=== PATIENT | male | born 1995 | race Caucasian/White ===

== ENCOUNTER 2019-05-07 18:17 | Emergency (ER) | payer OTHER ==
[2019-05-07 19:40] VITALS: RESP 19
--- NOTE | 2019-05-07 20:01 | ED ---
General Adult HPI - General Chief complaint: Syncope Stated complaint: Passed out eye injury Time Seen by Provider: 05/07/19 18:40 Source: patient, RN notes reviewed Mode of arrival: wheelchair Limitations: no limitations - History of Present Illness Initial comments: This a 24-year-old male who presents emergency department after having had a syncopal episode. Patient states he was sleeping he got up and went to the bathroom and when he was urinating started to feel lightheaded the next thing He knows he ended up on the ground. Patient states he has a very superficial abrasion just under the left eye. Patient denies any headache. patient denies any numbness weakness. Patient denies feeling any chest pain palpitations difficulty breathing shortness of breath. Patient states since he fell he feels back to his baseline. - Related Data Home Medications Medication Instructions Recorded Confirmed Cephalexin [Keflex] 500 mg PO TID 05/07/19 05/07/19 Lisinopril-Hctz 20-12.5 mg 1 tab PO DAILY 05/07/19 05/07/19 [Zestoretic 20-12.5] Allergies Allergy/AdvReac Type Severity Reaction Status Date / Time No Known Allergies Allergy Verified 05/07/19 19:50 Review of Systems ROS Statement: Those systems with pertinent positive or pertinent negative responses have been documented in the HPI. ROS Other: All systems not noted in ROS Statement are negative. Past Medical History Past Medical History: Hypertension History of Any Multi-Drug Resistant Organisms: None Reported Past Surgical History: No Surgical Hx Reported Past Psychological History: No Psychological Hx Reported Smoking Status: Never smoker Past Alcohol Use History: None Reported Past Drug Use History: None Reported General Exam - General Exam Comments Initial Comments: GENERAL: Patient is well-developed and well-nourished. Patient is nontoxic and well- hydrated and is in no acute distress. ENT: Neck is soft and supple. No significant lymphadenopathy is noted. Oropharynx is clear. Moist mucous membranes. Neck has full range of motion without eliciting any pain. EYES: The sclera were anicteric and conjunctiva were pink and moist. Extraocular movements were intact and pupils were equal round and reactive to light. Eyelids were unremarkable. PULMONARY: Unlabored respirations. Good breath sounds bilaterally. No audible rales rhonchi or wheezing was noted. CARDIOVASCULAR: There is a regular rate and rhythm without any murmurs gallops or rubs. ABDOMEN: Soft and nontender with normal bowel sounds. SKIN: Superficial laceration under the left eye. NEUROLOGIC: Patient is alert and oriented x3. Cranial nerves II through XII are grossly intact. Motor and sensory are also intact. Normal speech, volume and content. Symmetrical smile. MUSCULOSKELETAL: Normal extremities with adequate strength and full range of motion. LYMPHATICS: No significant lymphadenopathy is noted PSYCHIATRIC: Normal psychiatric evaluation. Limitations: no limitations Course Vital Signs 05/07/19 05/07/19 18:35 18:40 Temperature 97.9 F Pulse Rate 80 110 H Pulse Rate [ 106 H Pulse Oximetery ] Respiratory 18 19 Rate Blood Pressure 141/81 140/84 O2 Sat by Pulse 100 100 Oximetry Medical Decision Making - Medical Decision Making EKG shows normal sinus rhythm at 81 bpm GA interval 250 QRS is 96 QT interval 360 QTC is 427. Patient's EKG shows no ST segment elevation or depression or T wave abnormalities are noted. I went back into the room to reevaluate the patient he was completely asymptomatic at this time. Disposition Clinical Impression: Vasovagal syncope Disposition: HOME SELF-CARE Condition: Good Instructions (If sedation given, give patient instructions): Syncope (ED) Is patient prescribed a controlled substance at d/c from ED?: No Referrals: Leonardo Sparrow MD [Primary Care Provider] - 1-2 days Time of Disposition: 20:46
--- NOTE | 2019-05-07 20:39 | CT ---
EXAMINATION TYPE: CT orbits wo con DATE OF EXAM: 05/07/2019 COMPARISON: None HISTORY: Pt passed out and hit face. Cut just below LT eye CT DLP: 317.1 mGycm Automated exposure control for dose reduction was used. FINDINGS: Multiple axial sections were obtained from the mid maxilla to the top of the frontal sinuses without contrast. The orbital margins are intact. There is no evidence of retro-orbital mass. There is no evidence of a blowout fracture. The maxilla appears intact. Nasal bone appears intact. There is normal aeration of the visualized maxillary sinuses. The zygomatic arches are intact. Temporomandibular joints are inta ct. There is mild soft tissue swelling anterior to the left maxilla. IMPRESSION: LEFT-SIDED SOFT TISSUE SWELLING. NO FRACTURE SEEN.
[2019-05-07 21:14] VITALS: BP 137/76; PULSE 92; TEMP 98.2
== END 2019-05-07 21:14 | disposition home or self-care (01) ==
LOC: EC 18:17
DX: R55 Syncope and collapse (principal); S05.8X9A Other injuries of unspecified eye and orbit, initial encounter; I10 Essential (primary) hypertension; Z79.899 Other long term (current) drug therapy; Y92.002 Bathroom of unspecified non-institutional (private) residence as the place of occurrence of the external cause
CPT/HCPCS: 70480; 99284

== ENCOUNTER 2019-07-30 04:26 | Emergency (ER) | payer OTHER ==
[2019-07-30 04:42] VITALS: BP 177/81; PULSE 88; RESP 20; TEMP 98.4
--- NOTE | 2019-07-30 05:01 | XR ---
EXAMINATION TYPE: XR foot complete LT DATE OF EXAM: 07/30/2019 COMPARISON: NONE HISTORY: Foot injury. Pain TECHNIQUE: 3 views FINDINGS: Metatarsals are intact. I see no fracture nor dislocation. Joint spaces are normal. There a re no erosions. IMPRESSION: Negative left foot exam.
--- NOTE | 2019-07-30 05:24 | ED ---
Lower Extremity Injury HPI - General Chief Complaint: Extremity Injury, Lower Stated Complaint: [facility] L Foot Injury Time Seen by Provider: 07/30/19 04:54 Source: patient, family Mode of arrival: ambulatory Limitations: no limitations - History of Present Illness Initial Comments: Patient is a 24-year-old male presents the ER today for evaluation of left foot and toe pain. Patient reports that he was at work when he dropped a part weighing approximately 3035 pounds onto his foot. Patient has been ambulatory since that time but has some pain in the so the toe on the top of his foot. He denies other injuries. - Related Data Home Medications Medication Instructions Recorded Confirmed Cephalexin [Keflex] 500 mg PO TID 05/07/19 05/07/19 Lisinopril-Hctz 20-12.5 mg 1 tab PO DAILY 05/07/19 05/07/19 [Zestoretic 20-12.5] Allergies Allergy/AdvReac Type Severity Reaction Status Date / Time No Known Allergies Allergy Verified 07/30/19 04:42 Review of Systems ROS Statement: Those systems with pertinent positive or pertinent negative responses have been documented in the HPI. ROS Other: All systems not noted in ROS Statement are negative. Past Medical History Past Medical History: Hypertension History of Any Multi-Drug Resistant Organisms: None Reported Past Surgical History: No Surgical Hx Reported Past Psychological History: No Psychological Hx Reported Smoking Status: Never smoker Past Alcohol Use History: None Reported Past Drug Use History: None Reported General Exam - General Exam Comments Initial Comments: Physical Exam GENERAL: Patient is well-developed and well-nourished. Patient is nontoxic and well-hydrated and is in no distress. HENT: Normocephalic, Atraumatic. EYES: PERRL, EOMI PULMONARY: Unlabored respirations. CARDIOVASCULAR: RRR Warm and well perfused extremities ABDOMEN: Non-distended SKIN: Bruising to the top of left foot at the base of the great toe Injury of the toenail no subungual hematomas noted : Deferred NEUROLOGIC: Alert and oriented Normal speech Normal gait MUSCULOSKELETAL: Moving all extremities Ambulatory without difficulty PSYCHIATRIC: No SI/HI Limitations: no limitations Course Vital Signs 07/30/19 04:38 Temperature 98.4 F Pulse Rate 88 Respiratory 20 Rate Blood Pressure 177/81 O2 Sat by Pulse 98 Oximetry Medical Decision Making - Medical Decision Making Patient was seen and evaluated x-rays were obtained and revealed no acute fracture I reviewed the x-ray myself agree there is no acute fracture these results were discussed patient expresses relief. Patient medically cleared for discharge home and advised follow-up with primary care physician for any persistent pain. Disposition Clinical Impression: Contusion of left foot Disposition: HOME SELF-CARE Condition: Stable Instructions (If sedation given, give patient instructions): Contusion in Adults (ED) Additional Instructions: X-ray revealed no fractures, if you have persistent pain after one week he should have the toe re-x-rayed by her primary care physician. Is patient prescribed a controlled substance at d/c from ED?: No Referrals: Leonardo Sparrow MD [Primary Care Provider] - 1-2 days
== END 2019-07-30 05:46 | disposition home or self-care (01) ==
LOC: EC 04:26
DX: S90.112A Contusion of left great toe without damage to nail, initial encounter (principal); I10 Essential (primary) hypertension; W20.8XXA Other cause of strike by thrown, projected or falling object, initial encounter; Y93.89 Activity, other specified; Y92.69 Other specified industrial and construction area as the place of occurrence of the external cause; Y99.0 Civilian activity done for income or pay
CPT/HCPCS: 99283